=== PATIENT | female | born 1960 | race Caucasian/White ===

== ENCOUNTER 2021-06-07 09:44 | Day surgery (SDC) | payer OTHER ==
[~2021-06-07] VITALS: Ht 147.3 cm; Wt 93.4 kg
[2021-06-07] MEDS ORDERED: LIDOCAINE 2% 100 MG/5 ML SYR IVP ONE (12:45)
[2021-06-07] MEDS ORDERED: fentaNYL citrate 0.05 MG/ML VIAL ONE (12:45)
[2021-06-07] MEDS ORDERED: MIDAZOLAM 5 MG/5 ML VIAL ONE (12:51)
[2021-06-07] MEDS ORDERED: fentaNYL citrate 0.05 MG/ML VIAL IVP ONE (13:40)
== END 2021-06-07 13:45 | disposition home or self-care (01) ==
LOC: MDS 09:44 → MMU 10:36 → MDS 13:45
PROVIDERS: ATTEND Internal Medicine Gastroenterology
DX: Z12.11 Encounter for screening for malignant neoplasm of colon (principal); I10 Essential (primary) hypertension; E11.9 Type 2 diabetes mellitus without complications; Z79.82 Long term (current) use of aspirin; Z79.84 Long term (current) use of oral hypoglycemic drugs; Z79.899 Other long term (current) drug therapy
CPT/HCPCS: 45378; J3010; J2001; J2250